=== PATIENT | male | born 2000 | race Two or more races ===

== ENCOUNTER 2023-04-18 23:09 | Inpatient (IN) | payer MEDICAID ==
[2023-04-18] VITALS: BP 139/74; TEMP 98.3; O2SAT 98
[~2023-04-18] VITALS: Ht 182.9 cm; Wt 68.9 kg
[2023-04-19] VITALS (9 sets, daily range): BP systolic 106–139; BP diastolic 71–81; TEMP 98.3–101.1; O2SAT 98–100
[2023-04-19] MEDS ORDERED: MORPHINE SULFATE INJ 2 MG/ML DISP.SYRIN IV PRN
[2023-04-19] MEDS ORDERED: MAGNESIUM HYDROXIDE 30 ML UDC PO PRN
[2023-04-19] MEDS ORDERED: MAG HYDROX/AL HYDROX/SIMETH 30 ML UDC PO PRN
[2023-04-19] MEDS ORDERED: ZOLPIDEM TARTRATE 5 MG TABLET PO PRN
[2023-04-19] MEDS ORDERED: ONDANSETRON HCL/PF 4 MG/2 ML VIAL IVP PRN
[2023-04-19] MEDS ORDERED: HYDROCODONE/APAP 5/325MG TABLET PO PRN
[2023-04-19] MEDS ORDERED: Z GUARD REMEDY 4 OZ OINT TP PRN
[2023-04-19] MEDS: IV NS 0.9% 1,000 ML IV PRN ×2 (00:08→16:08)
[2023-04-19] MEDS ORDERED: DOXYCYCLINE 100 MG VIAL ONE (03:54)
[2023-04-19] MEDS: DOXYCYCLINE 100 MG in IV D5W 100 ML IV SCH ×2 (04:17→16:08)
[2023-04-19 06:46] LABS: BASOPHILS % (AUTO) 0.5 % (0.0-2.0); EOSINOPHILS # (AUTO) 0.1 K/uL (0.0-0.7); EOSINOPHILS % (AUTO) 1.1 % (0.0-6.0); HEMATOCRIT 43 % (39-51); HEMOGLOBIN 14.4 g/dL (13.5-17.5); LYMPHOCYTES # (AUTO) 1.1 K/uL (0.8-4.8); LYMPHOCYTES % (AUTO) 16.6 % (20.0-44.0); MEAN CORPUSCULAR HEMOGLOBIN 29 PG (26.0-33.0); MEAN CORPUSCULAR HGB CONC 34 g/dl (31.0-36.0); MEAN CORPUSCULAR VOLUME 85 fL (80-96); MONOCYTES % (AUTO) 15.2 % (2.0-12.0); NEUTROPHILS # (AUTO) 4.3 K/uL (1.8-8.9); NEUTROPHILS % (AUTO) 66.6 % (43.0-81.0); PLATELET COUNT (AUTO) 323 K/uL (150-450); RED BLOOD CELL COUNT(AUTO) 4.99 MIL/uL (4.5-6.0); RED CELL DISTRIBUTION WIDTH 14.3 % (11.5-15.0); WHITE BLOOD COUNT (AUTO) 6.5 K/uL (4.3-11.0)
[2023-04-19 07:26] LABS: BILIRUBIN,TOTAL 0.8 mg/dL (0.2-1.0); CALCIUM, SERUM 8.3 mg/dL (8.5-10.1); MAGNESIUM 2.2 mg/dL (1.8-2.4); PHOSPHORUS 2.7 mg/dL (2.5-4.9); POTASSIUM 3.9 mmol/L (3.5-5.1); TOTAL PROTEIN, SERUM 6.7 g/dL (6.4-8.2)
[2023-04-19] MEDS: PANTOPRAZOLE 40 MG TABLET.DR PO SCH (08:28)
[2023-04-19] MEDS ORDERED: GUAI5SYR GT (13:00)
[2023-04-19] MEDS ORDERED: DOXY-326 PO (13:00)
[2023-04-19] MEDS ORDERED: AMOX-430 PO (13:00)
[2023-04-19] MEDS: ACETAMINOPHEN 325 MG TABLET PO PRN (16:08)
[2023-04-19] MEDS ORDERED: CEFTRIAXONE 1 G in IV D5W 50 ML IV SCH (17:00)
[2023-04-19] MEDS ORDERED: HYDROCODONE BIT/HOMATROPINE 5 ML UDC PO PRN (18:30)
[2023-04-19] MEDS ORDERED: dexaMETHasone SOD PHOSPHATE 10 MG/ML VIAL IV ONE ×2 (18:30)
[2023-04-19] MEDS ORDERED: CEFTRIAXONE 2 G in IV D5W 100 ML IV SCH (18:30)
[2023-04-19] MEDS: GUAIFENESIN LA 600 MG TABLET.SA PO SCH ×2 (19:15→20:11)
[2023-04-19] MEDS: CEFTRIAXONE 2 G in IV D5W 100 ML IV SCH (19:15)
[2023-04-19] MEDS: IPRATROPIUM NEB FS 0.5 MG/2.5 ML AMPUL.NEB NEB SCH (20:25)
[2023-04-19] MEDS: ALBUTEROL FS 2.5 MG/3 ML VIAL.NEB NEB SCH (20:25)
[2023-04-20] VITALS (8 sets, daily range): BP systolic 109–119; BP diastolic 50–77; TEMP 97.5–98; O2SAT 98–100
[2023-04-20] MEDS: DOXYCYCLINE 100 MG in IV D5W 100 ML IV SCH ×2 (04:34→17:59)
[2023-04-20] MEDS: CEFTRIAXONE 2 G in IV D5W 100 ML IV SCH ×2 (06:00→20:46)
[2023-04-20 06:19] LABS: BASOPHILS % (AUTO) 0.2 % (0.0-2.0); HEMATOCRIT 44 % (39-51); HEMOGLOBIN 14.8 g/dL (13.5-17.5); LYMPHOCYTES # (AUTO) 0.7 K/uL (0.8-4.8); LYMPHOCYTES % (AUTO) 8.9 % (20.0-44.0); MEAN CORPUSCULAR HEMOGLOBIN 29 PG (26.0-33.0); MEAN CORPUSCULAR HGB CONC 33 g/dl (31.0-36.0); MEAN CORPUSCULAR VOLUME 86 fL (80-96); MONOCYTES # (AUTO) 0.3 K/uL (0.1-1.30); MONOCYTES % (AUTO) 3.6 % (2.0-12.0); NEUTROPHILS # (AUTO) 6.5 K/uL (1.8-8.9); NEUTROPHILS % (AUTO) 87.3 % (43.0-81.0); PLATELET COUNT (AUTO) 374 K/uL (150-450); RED BLOOD CELL COUNT(AUTO) 5.16 MIL/uL (4.5-6.0); RED CELL DISTRIBUTION WIDTH 14.1 % (11.5-15.0); WHITE BLOOD COUNT (AUTO) 7.4 K/uL (4.3-11.0)
[2023-04-20 06:42] LABS: ALBUMIN 3.2 g/dL (3.4-5.0); BILIRUBIN,TOTAL 0.4 mg/dL (0.2-1.0); CALCIUM, SERUM 9.3 mg/dL (8.5-10.1); CREATININE 0.8 mg/dL (0.6-1.3); MAGNESIUM 2.2 mg/dL (1.8-2.4); POTASSIUM 4.1 mmol/L (3.5-5.1); TOTAL PROTEIN, SERUM 7.8 g/dL (6.4-8.2)
[2023-04-20] MEDS: IPRATROPIUM NEB FS 0.5 MG/2.5 ML AMPUL.NEB NEB SCH ×3 (07:35→20:13)
[2023-04-20] MEDS: ALBUTEROL FS 2.5 MG/3 ML VIAL.NEB NEB SCH ×3 (07:35→20:13)
[2023-04-20 09:35] LABS: INR 1.1 (0.91-1.10); PARTIAL THROMBOPLASTIN TIME 33.4 SEC (24.3-34.3); PROTHROMBIN TIME 11.5 SECS (9.2-11.1)
[2023-04-20] MEDS: GUAIFENESIN LA 600 MG TABLET.SA PO SCH ×2 (09:36→20:57)
[2023-04-20] MEDS: PANTOPRAZOLE 40 MG TABLET.DR PO SCH (09:36)
[2023-04-20] MEDS ORDERED: MORPHINE SULFATE INJ 2 MG/ML DISP.SYRIN IV ONE (16:30)
[2023-04-20] MEDS ORDERED: ONDANSETRON HCL/PF 4 MG/2 ML VIAL IV ONE (16:30)
[2023-04-20] MEDS ORDERED: ALPRAZOLAM 0.25 MG TABLET PO PRN (19:00)
[2023-04-20] MEDS: IV NS 0.9% 1,000 ML IV PRN (19:08)
[2023-04-20 21:10] LABS: PROTEIN, BODY FLUID 5.1 G/DL
[2023-04-20 22:17] LABS: APPEARANCE,SPUN,BODY FLUID CLEAR (CLEAR); TOTAL VOLUME,BODY FLUID 50 mL
[2023-04-20 22:26] LABS: POLYNUCLEAR, BODY FLUID 25 % (0-25)
[2023-04-20] MEDS: MORPHINE SULFATE INJ 2 MG/ML DISP.SYRIN IV PRN (23:48)
[2023-04-21] VITALS (10 sets, daily range): BP systolic 104–123; BP diastolic 49–75; TEMP 98–101.8; O2SAT 99–100
[2023-04-21] MEDS: DOXYCYCLINE 100 MG in IV D5W 100 ML IV SCH (04:48)
[2023-04-21] MEDS: MORPHINE SULFATE INJ 2 MG/ML DISP.SYRIN IV PRN (06:01)
[2023-04-21] MEDS: CEFTRIAXONE 2 G in IV D5W 100 ML IV SCH ×2 (06:02→17:41)
[2023-04-21 06:03] LABS: BASOPHILS % (AUTO) 0.3 % (0.0-2.0); EOSINOPHILS % (AUTO) 0.3 % (0.0-6.0); HEMATOCRIT 41 % (39-51); HEMOGLOBIN 14.1 g/dL (13.5-17.5); LYMPHOCYTES # (AUTO) 1.2 K/uL (0.8-4.8); LYMPHOCYTES % (AUTO) 15.4 % (20.0-44.0); MEAN CORPUSCULAR HEMOGLOBIN 29 PG (26.0-33.0); MEAN CORPUSCULAR HGB CONC 34 g/dl (31.0-36.0); MEAN CORPUSCULAR VOLUME 85 fL (80-96); MONOCYTES # (AUTO) 0.6 K/uL (0.1-1.30); MONOCYTES % (AUTO) 8.3 % (2.0-12.0); NEUTROPHILS # (AUTO) 5.9 K/uL (1.8-8.9); NEUTROPHILS % (AUTO) 75.7 % (43.0-81.0); PLATELET COUNT (AUTO) 367 K/uL (150-450); RED BLOOD CELL COUNT(AUTO) 4.86 MIL/uL (4.5-6.0); RED CELL DISTRIBUTION WIDTH 14.4 % (11.5-15.0); WHITE BLOOD COUNT (AUTO) 7.8 K/uL (4.3-11.0)
[2023-04-21 06:22] LABS: CALCIUM, SERUM 8.8 mg/dL (8.5-10.1); CREATININE 0.9 mg/dL (0.6-1.3); MAGNESIUM 2.3 mg/dL (1.8-2.4); PHOSPHORUS 3.8 mg/dL (2.5-4.9); POTASSIUM 4.1 mmol/L (3.5-5.1)
[2023-04-21] MEDS: ALBUTEROL FS 2.5 MG/3 ML VIAL.NEB NEB SCH ×3 (07:28→19:43)
[2023-04-21] MEDS: IPRATROPIUM NEB FS 0.5 MG/2.5 ML AMPUL.NEB NEB SCH ×3 (07:28→19:43)
[2023-04-21] MEDS: GUAIFENESIN LA 600 MG TABLET.SA PO SCH ×2 (08:52→20:52)
[2023-04-21] MEDS: PANTOPRAZOLE 40 MG TABLET.DR PO SCH (08:52)
[2023-04-21] MEDS: ACETAMINOPHEN 325 MG TABLET PO PRN ×2 (10:51→20:51)
[2023-04-21] MEDS ORDERED: IV NS 0.9% 500 ML IV ONE (11:30)
[2023-04-21] MEDS: IV NS 0.9% 1,000 ML IV PRN (12:05)
[2023-04-21] MEDS ORDERED: IBUPROFEN 400 MG TABLET PO PRN (13:30)
[2023-04-21] MEDS: DOXYCYCLINE HYCLATE (100 MG) 100 MG TABLET PO SCH (17:41)
[2023-04-22] VITALS (10 sets, daily range): BP systolic 107–125; BP diastolic 63–82; TEMP 98.6–101.1; O2SAT 95–100
[2023-04-22] MEDS: DOXYCYCLINE HYCLATE (100 MG) 100 MG TABLET PO SCH ×2 (05:43→16:31)
[2023-04-22] MEDS: CEFTRIAXONE 2 G in IV D5W 100 ML IV SCH (05:43)
[2023-04-22] MEDS: IV NS 0.9% 1,000 ML IV PRN ×2 (05:48→20:54)
[2023-04-22 06:58] LABS: CALCIUM, SERUM 9.2 mg/dL (8.5-10.1); CREATININE 0.9 mg/dL (0.6-1.3); MAGNESIUM 2.4 mg/dL (1.8-2.4); PHOSPHORUS 3.5 mg/dL (2.5-4.9); POTASSIUM 4.5 mmol/L (3.5-5.1)
[2023-04-22] MEDS: PANTOPRAZOLE 40 MG TABLET.DR PO SCH (07:30)
[2023-04-22] MEDS: IPRATROPIUM NEB FS 0.5 MG/2.5 ML AMPUL.NEB NEB SCH ×3 (07:35→19:53)
[2023-04-22] MEDS: ALBUTEROL FS 2.5 MG/3 ML VIAL.NEB NEB SCH ×3 (07:35→19:53)
[2023-04-22 07:56] LABS: BASOPHILS % (AUTO) 0.7 % (0.0-2.0); EOSINOPHILS % (AUTO) 0.4 % (0.0-6.0); HEMATOCRIT 44 % (39-51); HEMOGLOBIN 14.4 g/dL (13.5-17.5); LYMPHOCYTES # (AUTO) 1.1 K/uL (0.8-4.8); MEAN CORPUSCULAR HEMOGLOBIN 29 PG (26.0-33.0); MEAN CORPUSCULAR HGB CONC 33 g/dl (31.0-36.0); MEAN CORPUSCULAR VOLUME 86 fL (80-96); MONOCYTES # (AUTO) 1.2 K/uL (0.1-1.30); MONOCYTES % (AUTO) 18.5 % (2.0-12.0); NEUTROPHILS # (AUTO) 4.1 K/uL (1.8-8.9); NEUTROPHILS % (AUTO) 63.4 % (43.0-81.0); PLATELET COUNT (AUTO) 403 K/uL (150-450); RED BLOOD CELL COUNT(AUTO) 5.05 MIL/uL (4.5-6.0); RED CELL DISTRIBUTION WIDTH 14.5 % (11.5-15.0); WHITE BLOOD COUNT (AUTO) 6.4 K/uL (4.3-11.0)
[2023-04-22] MEDS: GUAIFENESIN LA 600 MG TABLET.SA PO SCH ×2 (08:34→20:42)
[2023-04-22] MEDS: ACETAMINOPHEN 325 MG TABLET PO PRN ×2 (08:35→17:40)
[2023-04-22 10:40] LABS: APPEARANCE,URINE CLEAR (CLEAR); BILIRUBIN,URINE NEGATIVE (NEGATIVE); BLOOD, URINE 1+ Ery/uL (NEGATIVE); COLOR,URINE YELLOW (YELLOW); KETONES,URINE TRACE mg/dL (NEGATIVE); LEUKOCYTE ESTERASE ,URINE NEGATIVE (NEGATIVE); NITRITE, URINE NEGATIVE (NEGATIVE); PH,URINE 6.5 (5.0-8.0); PROTEIN,URINE TRACE mg/dl (NEGATIVE); UGLUCOSE NEGATIVE (NEGATIVE); UROBILINOGEN,URINE 0.2 EU/dL (0.2)
[2023-04-22 10:53] LABS: ADD URINE CULTURE NO; BACTERIA,URINE None seen /HPF (None Seen); WBC,URINE 0-2 /HPF (0-3)
[2023-04-22 10:54] LABS: SQUAMOUS EPITHELIAL CELL,UR Rare /HPF (None Seen)
[2023-04-22] MEDS: CEFEPIME 1 GM in IV D5W 50 ML IV SCH ×2 (12:04→20:45)
[2023-04-23] VITALS (7 sets, daily range): BP systolic 109–127; BP diastolic 54–78; TEMP 98.3–101.6; O2SAT 95–100
[2023-04-23] MEDS: ACETAMINOPHEN 325 MG TABLET PO PRN ×3 (00:12→23:41)
[2023-04-23] MEDS: DOXYCYCLINE HYCLATE (100 MG) 100 MG TABLET PO SCH ×2 (05:27→16:08)
[2023-04-23] MEDS: CEFEPIME 1 GM in IV D5W 50 ML IV SCH ×3 (05:27→20:54)
[2023-04-23 07:23] LABS: BASOPHILS % (AUTO) 0.6 % (0.0-2.0); EOSINOPHILS # (AUTO) 0.1 K/uL (0.0-0.7); EOSINOPHILS % (AUTO) 1.2 % (0.0-6.0); HEMATOCRIT 44 % (39-51); HEMOGLOBIN 14.5 g/dL (13.5-17.5); LYMPHOCYTES # (AUTO) 1.2 K/uL (0.8-4.8); LYMPHOCYTES % (AUTO) 17.9 % (20.0-44.0); MEAN CORPUSCULAR HEMOGLOBIN 29 PG (26.0-33.0); MEAN CORPUSCULAR HGB CONC 33 g/dl (31.0-36.0); MEAN CORPUSCULAR VOLUME 86 fL (80-96); MONOCYTES # (AUTO) 1.1 K/uL (0.1-1.30); MONOCYTES % (AUTO) 17.3 % (2.0-12.0); NEUTROPHILS # (AUTO) 4.1 K/uL (1.8-8.9); PLATELET COUNT (AUTO) 385 K/uL (150-450); RED BLOOD CELL COUNT(AUTO) 5.05 MIL/uL (4.5-6.0); RED CELL DISTRIBUTION WIDTH 14.1 % (11.5-15.0); WHITE BLOOD COUNT (AUTO) 6.5 K/uL (4.3-11.0)
[2023-04-23] MEDS: IPRATROPIUM NEB FS 0.5 MG/2.5 ML AMPUL.NEB NEB SCH ×3 (07:35→20:18)
[2023-04-23] MEDS: ALBUTEROL FS 2.5 MG/3 ML VIAL.NEB NEB SCH ×3 (07:35→20:18)
[2023-04-23 07:38] LABS: CREATININE 0.9 mg/dL (0.6-1.3); MAGNESIUM 2.2 mg/dL (1.8-2.4); POTASSIUM 3.8 mmol/L (3.5-5.1)
[2023-04-23 08:00] LABS: PHOSPHORUS 3.6 mg/dL (2.5-4.9)
[2023-04-23] MEDS: GUAIFENESIN LA 600 MG TABLET.SA PO SCH ×2 (08:05→20:54)
[2023-04-23] MEDS: PANTOPRAZOLE 40 MG TABLET.DR PO SCH (08:05)
[2023-04-23 10:22] LABS: BASOPHILS % (MANUAL) 0 % (0.0-2.0); EOSINOPHILS % (MANUAL) 0 % (0-4); LYMPHOCYTES % (MANUAL) 22 % (16-48); MONOCYTES % (MANUAL) 16 % (0-11.0); NEUTROPHILS % (MANUAL) 62 (42-76); PLATELET ESTIMATE ADEQUATE
[2023-04-23] MEDS: IV NS 0.9% 1,000 ML IV PRN (14:06)
[2023-04-24] VITALS: BP 133/75; TEMP 102.3; O2SAT 100
[2023-04-24 04:00] VITALS: BP 121/74; TEMP 98.8; O2SAT 100
[2023-04-24] MEDS: DOXYCYCLINE HYCLATE (100 MG) 100 MG TABLET PO SCH ×2 (04:40→16:19)
[2023-04-24] MEDS: IV NS 0.9% 1,000 ML IV PRN ×2 (04:40→18:23)
[2023-04-24] MEDS: CEFEPIME 1 GM in IV D5W 50 ML IV SCH ×2 (04:41→12:34)
[2023-04-24] MEDS: ALBUTEROL FS 2.5 MG/3 ML VIAL.NEB NEB SCH ×3 (07:35→19:30)
[2023-04-24] MEDS: IPRATROPIUM NEB FS 0.5 MG/2.5 ML AMPUL.NEB NEB SCH ×3 (07:35→19:30)
[2023-04-24 08:00] VITALS: BP 135/74; TEMP 98.8; O2SAT 100
[2023-04-24] MEDS: PANTOPRAZOLE 40 MG TABLET.DR PO SCH (08:06)
[2023-04-24] MEDS: GUAIFENESIN LA 600 MG TABLET.SA PO SCH (08:06)
[2023-04-24 12:00] VITALS: BP 142/78; TEMP 98.7; O2SAT 100
[2023-04-24 16:00] VITALS: BP 120/82; TEMP 100.3; O2SAT 96
[2023-04-24] MEDS: ACETAMINOPHEN 325 MG TABLET PO PRN (16:19)
[2023-04-24] MEDS ORDERED: LEVOFLOXACIN (250MG) 250 MG TABLET PO SCH (18:30)
== END 2023-04-24 21:31 | disposition left against medical advice (07) | DRG 139 ==
LOC: TELE1 23:21 → MEDSG1 04-19 18:22 → TELE1 04-20 18:42 → TELE-TD 04-21 10:58 → TELE1 04-22 08:30
PROVIDERS: ADMIT Nurse Practitioner Acute Care; ATTEND Nurse Practitioner Acute Care
PROC: 0W9B30Z Drainage of Left Pleural Cavity with Drainage Device, Percutaneous Approach (ICD-10-PCS; principal; 2023-04-20)
DX: J15.9 Unspecified bacterial pneumonia (principal); E87.20 Acidosis, unspecified; E88.09 Other disorders of plasma-protein metabolism, not elsewhere classified; J90 Pleural effusion, not elsewhere classified; J95.811 Postprocedural pneumothorax; Y84.8 Other medical procedures as the cause of abnormal reaction of the patient, or of later complication, without mention of misadventure at the time of the procedure; Y92.230 Patient room in hospital as the place of occurrence of the external cause
CPT/HCPCS: 36415; 71045-TC; 71250-TC; 75989; 80048-TC; 80053-TC; 80061-TC; 81001; 83735-TC; 84100-TC; 85025-TC; 85610-TC; 85730-TC; 87040-TC; 87081-TC; 87086-TC; 89051-TC; 94762-TC; 94799-TC; A4223; A6253; G0378; J0692; J0696; J1100; J2270; J2405; J3490; J7030; J7040; J7060